=== PATIENT | male | born 1950 | race Caucasian/White ===

== ENCOUNTER 2020-03-19 04:59 | Day surgery (SDC) | payer MEDICARE, BC ==
[2020-03-11 15:48] LABS: BASOPHILS % (AUTO) 0.6 % (0-1); EOSINOPHILS # (AUTO) 0.1 X10'3 (0-0.9); EOSINOPHILS % (AUTO) 2.2 % (0-6); LYMPHOCYTES # (AUTO) 0.9 X10'3 (1.1-4.8); LYMPHOCYTES % (AUTO) 17.3 % (21-51); MEAN CORPUSCULAR HEMOGLOBIN 33.6 PG (27.0-31.0); MEAN CORPUSCULAR HGB CONC 33.7 g/dL (33.0-36.5); MEAN CORPUSCULAR VOLUME 99.4 FL (78-98); MEAN PLATELET VOLUME 9.1 FL (7.4-10.4); MONOCYTES # (AUTO) 0.4 X10'3 (0-0.9); NEUTROPHILS # (AUTO) 3.6 X10'3 (1.8-7.7); NEUTROPHILS % (AUTO) 71.9 % (42-75); PRE OP HEMATOCRIT 41.4 % (42.0-52.0); PRE OP PLATELET COUNT 132 X10'3 (140-440); RED BLOOD COUNT 4.16 X10'6 (4.70-6.10); RED CELL DISTRIBUTION WIDTH 13.5 % (11.5-14.5)
[2020-03-11 16:00] LABS: PRE OP PROTIME 10.8 SECONDS (9.0-12.0)
[2020-03-11 16:05] LABS: ALBUMIN/GLOBULIN RATIO 1.3 (1.1-1.5); ALKALINE PHOSPHATASE 63 IU/L (46-116); BLOOD UREA NITROGEN 17 MG/DL (7-18); BUN/CREATININE RATIO 14.4 (5.4-32.0); CALCIUM 9.5 MG/DL (8.5-10.1); CHLORIDE 107 MMOL/L (99-107); CREATININE 1.18 MG/DL (0.60-1.10); PRE OP ALT 26 U/L (30-65); PRE OP ANION GAP 11 (8-16); PRE OP AST 22 U/L (10-37); PRE OP BILIRUB, TOTAL 0.6 MG/DL (0.0-1.0); PRE OP GLUCOSE 100 MG/DL (70-104); PRE OP SODIUM 141 MMOL/L (135-145); TOTAL CARBON DIOXIDE 22.8 MMOL/L (24-32); TOTAL PROTEIN 7.1 G/DL (6.4-8.2); eGFR 61 ML/MIN
[~2020-03-19] VITALS: Ht 190.5 cm; Wt 113.4 kg
[2020-03-19] VITALS (21 sets, daily range): BP systolic 123–157; BP diastolic 61–95
[~2020-03-19 04:59] MED LIST: ATOR40TA71 PO; NAPR220T67 PO
[2020-03-19] MEDS ORDERED: ringers solution, lacted 1,000 ML IV SCH ×2 (05:00→08:12)
[2020-03-19] MEDS ORDERED: ceFAZolin 2gm in dextrose, iso 50 ML IV ONE (05:30)
[2020-03-19] MEDS ORDERED: vancomycin 1,500 MG in NS 300ml IV soln IV ONE (05:30)
[2020-03-19] MEDS ORDERED: famotidine 20mg tablet PO ONE (05:30)
[2020-03-19] MEDS ORDERED: LIDOcaine 1% (10mg/ml) 2ml vial ONE (05:57)
[2020-03-19] MEDS ORDERED: BUPIVAcaine/PF 2.5 mg/ml (0.25%) 30ml vial ONE (06:08)
[2020-03-19] MEDS ORDERED: sevoflurane 250ml liquid IH ONE (07:13)
[2020-03-19] MEDS ORDERED: midazolam 2 mg/2 ml injection ONE (07:14)
[2020-03-19] MEDS ORDERED: fentaNYL /PF 50mcg/ml 5ml ampule ONE (07:14)
[2020-03-19] MEDS ORDERED: propofol inj 20 ML IV ONE (07:18)
[2020-03-19] MEDS ORDERED: rocuronium 10mg/ml inj IV ONE (07:18)
[2020-03-19] MEDS ORDERED: ondansetron/PF 4mg/2ml inj IV PRN ×2 (08:15→10:10)
[2020-03-19] MEDS ORDERED: HYDROmorphone inj. 0.5 MG/0.5 ML DISP.SYRIN IV PRN (08:15)
[2020-03-19] MEDS ORDERED: meperidine/PF 25mg/ml syringe IV PRN ×2 (08:15)
[2020-03-19] MEDS ORDERED: ketamine 50mg/5ml syringe ONE (08:31)
[2020-03-19] MEDS ORDERED: acetaminophen 1,000mg/100ml IV 100 ML IV ONE (09:18)
[2020-03-19] MEDS ORDERED: ondansetron/PF 4mg/2ml inj ONE (09:41)
--- NOTE | 2020-03-19 09:54 | NUR ---
Received from OR via BED, accompanied by Anesthesiologist DR EMMANUEL and report given by Anesthesiologist. PT DROWSY, LEFT SHOULDER W/MANSI COOLEY COVERING INCISION CDI, LEFT ARM IN IMMOBILIZER, Addendum: 03/19/20 at 1030 by Idania Sim RN Amended: Links added.
[2020-03-19] MEDS: meperidine/PF 25mg/ml syringe IV PRN ×4 (10:00→10:32)
[2020-03-19] MEDS ORDERED: acetaminophen 325mg tablet PO PRN (10:10)
[2020-03-19] MEDS ORDERED: diphenhydrAMINE 25mg capsule PO PRN ×2 (10:10)
[2020-03-19] MEDS ORDERED: bisacodyl 10mg suppository rectal RC PRN (10:10)
[2020-03-19] MEDS ORDERED: magnesium hydroxide 30ml (MOM) UD suspension PO PRN (10:10)
[2020-03-19] MEDS ORDERED: HYDROmorphone 1 mg/ml syringe IV PRN (10:10)
[2020-03-19] MEDS: HYDROmorphone inj. 0.5 MG/0.5 ML DISP.SYRIN IV PRN ×2 (10:41→11:10)
--- NOTE | 2020-03-19 11:34 | NUR ---
Report called to receiving nurse. Transferred via BED, 1 BAG OF PERSONAL Belongings SENT W/PT TO ROOM 4021B, RECEIVING RN AT BEDSIDE TO RECEIVE PT, BLL, CALL LIGHT GIVEN, SIDE RAILS UP X 2, PT STATES HIS PAIN HAS IMPROVED. Special Issues communicated to receiving nurse. YES. Addendum: 03/19/20 at 1147 by Idania Sim RN Amended: Links added.
[2020-03-19] MEDS: potassium Cl 20mEq in NS 1,000 ML IV SCH ×3 (13:36→23:27)
[2020-03-19] MEDS ORDERED: ATOR40TA71 PO (14:29)
[2020-03-19] MEDS ORDERED: NAPR220C62 PO (14:29)
[2020-03-19] MEDS: oxyCODONE IR 5mg (immed. release) tablet PO PRN ×2 (16:30→23:11)
[2020-03-19] MEDS: ceFAZolin 1GM/D5W- ADD-VANTAGE 50 ML IV SCH ×2 (16:32→23:10)
--- NOTE | 2020-03-19 18:18 | NUR ---
Problems reprioritized. Patient report given, questions answered & plan of care reviewed with Tala QUARLES.
--- NOTE | 2020-03-19 18:20 | NUR ---
Received report from primary care nurse Amarilis QUARLES. Assumed patient care. Patient is awake and alert on room air in no apparent distress. Call light and items of frequent use within reach. Will continue to monitor for changes.
[2020-03-19] MEDS ORDERED: vancomycin/NS 1 GM ADD-VANTAGE 250 ML IV SCH (20:00)
[2020-03-19] MEDS ORDERED: sennosides 8.6mg tablet PO SCH (21:00)
[2020-03-20 02:00] VITALS: BP 114/80
[2020-03-20] MEDS: potassium Cl 20mEq in NS 1,000 ML IV SCH (04:25)
--- NOTE | 2020-03-20 06:11 | NUR ---
Reported off to Amarilis QUARLES. Patient is awake and alert on room air in no apparent distress. Call light and items of frequent use within reach.
[2020-03-20 06:23] VITALS: BP 134/85
[2020-03-20] MEDS: oxyCODONE IR 5mg (immed. release) tablet PO PRN (08:27)
--- NOTE | 2020-03-20 10:36 | NUR ---
Patient ready for discharge, called MD Rueda to verify if ok for patient to leave he said yes. Belongings sent home with patient. PIV removed, cannula intact. Narcotic prescription handed to patient. D/C instructions given to patient.
== END 2020-03-20 10:30 | disposition home or self-care (01) ==
LOC: PAS 04:59 → ORTHO 4S 10:13 → PAS 03-20 10:30
PROVIDERS: ATTEND Orthopaedic Surgery
DX: S46.012A Strain of muscle(s) and tendon(s) of the rotator cuff of left shoulder, initial encounter (principal); M19.012 Primary osteoarthritis, left shoulder; Z11.59 Encounter for screening for other viral diseases; Z79.01 Long term (current) use of anticoagulants; Z79.899 Other long term (current) drug therapy; Z96.653 Presence of artificial knee joint, bilateral; Z98.890 Other specified postprocedural states; Z88.8 Allergy status to other drugs, medicaments and biological substances; X58.XXXA Exposure to other specified factors, initial encounter; Y93.89 Activity, other specified; Y92.89 Other specified places as the place of occurrence of the external cause; Y99.8 Other external cause status
CPT/HCPCS: 23120; 23130; 23412; 36415; 80053; 82948; 85025; 85610; 85730; 93005; A6223; C1713; J0131; J0690; J1170; J2001; J2175; J2250; J2405; J2704; J3010; J3370; J3480; J3490; J7040; J7120; U0003; A4565; A4618; A6253; A6449; A7000; G0378